=== PATIENT | male | born 1985 | race Caucasian/White ===

== ENCOUNTER 2016-04-02 21:10 | Emergency (ER) | payer OTHER ==
--- NOTE | 2016-04-02 22:59 | ED CLINICAL REPORT ---
Clinical Report - Physicians/Mid Levels [facility] [address] [place] [address] 04/02/2016 21:11 Patient: KELIN TORO Time Seen: 21:46; initial patient contact, initial documentation, patient care assumed. Arrived- By private vehicle. Historian- patient. HISTORY OF PRESENT ILLNESS Chief Complaint: VOMITING and DIARRHEA. This started yesterday and is now gone. No recent travel. He has had nausea and vomiting. The vomiting has occurred twice. He has had loose stools. This has occurred several times. No bloody, watery, mucous containing or blood-tinged diarrhea. No black stools, bloody stools, abdominal pain, constipation or flank pain. No known contact with a sick individual or change in routine. Has not recently been camping or on antibiotics. Possible bad food exposure at home (says his s/s started within a few hours of eating moldy apple pie). The illness is described as severe. (says after his vomiting started his whole body went numb, not so bad now, also c/o R sided facial swelling and a hole in his upper tooth). Similar symptoms previously: None. Recent medical care: Not recently seen/assessed. REVIEW OF SYSTEMS No fever, difficulty with urination, dark urine, chest pain or difficulty breathing. All systems otherwise negative, except as recorded above. PAST HISTORY See nurses notes. PROBLEMS: no known problems. ADDITIONAL SURGERIES: Appendectomy. Tonsillectomy. --21:21 Zenon Garcia, RDoraN. SOCIAL HISTORY Light tobacco smoker. Occasional alcohol use. No drug use. No recent travel. Is a local resident. FAMILY HISTORY Negative. ADDITIONAL NOTES The nursing notes have been reviewed with agreement regarding the chief complaint, HPI, ROS, PMH and patient medications and allergies. PHYSICAL EXAM Vital Signs: 04/02/2016 21:16 BP: 120/85. HR: 90. RR: 16. O2 saturation: 100%. Temp: 98.4 F. Pain level now: 0/10. Have been reviewed as normal and appear to be correct. Appearance: Alert. Oriented X3. No acute distress. Eyes: Pupils equal, round and reactive to light. Eyes normal inspection. ENT: Ears normal. Nose normal. Pharynx normal. (R upper 2nd molar broken off with mild gum swelling, mild R maxillary facial swelling). Neck: Normal inspection. Neck supple. CVS: Normal heart rate and rhythm. Heart sounds normal. Pulses normal. Respiratory: No respiratory distress. Breath sounds normal. Abdomen: Soft and nontender. Bowel sounds normal. No organomegaly. No mass. Back: Normal inspection. Skin: Skin warm and dry. Normal skin color. No rash. Normal skin turgor. Extremities: Extremities exhibit normal ROM. No lower extremity edema. Neuro: Oriented X 3. No motor deficit. No sensory deficit. LABS, X-RAYS, AND EKG Laboratory Tests: CBC w Diff: (VIJAYA: 04/02/2016 22:06) ( [facility] 04/02/2016 22:13) Final results Test Result Flag Units (Reference) WHITE BLOOD COUNT 6.0 K/uL (4.5-11.5) RED BLOOD COUNT 4.87 M/uL (4.50-5.90) HEMOGLOBIN 14.6 gm/dL (13.5-17.5) HEMATOCRIT 43.7 % (41.0-53.0) MEAN CELL VOLUME 90 fL (80-100) MEAN CORPUSCULAR HGB 30 pg (26-34) MEAN CORPUSCULAR HGB CONC 34 g/dL (31-37) RED CELL DISTRIBUTION WIDTH 13.7 % (11.6-14.8) PLATELET COUNT 225 K/uL (150-400) NEUTROPHIL % 50.5 % (50-75) LYMPH % 33.4 % (25-40) MONO % 13.4 % (3-14) EOSINOPHIL % 1.9 % (0-4) BASOPHIL % 0.8 % (0-2) CMP: (VIJAYA: 04/02/2016 22:06) ( [facility] [place] 04/02/2016 22:29) Final results Test Result Flag Units (Reference) GLUCOSE 123 H mg/dL (70-110) BUN 16 mg/dL (7-18) CREATININE 1.1 mg/dL (0.6-1.3) Estimated GFR >60 mL/min Estimated GFR- >60 mL/min Note: Persistent reduction over 3 months in eGFR<60 mL/min/1.73 m2 defines CKD. Patients with eGFR values>=60 mL/min/1.73 m2 may also have CKD if evidence ofpersistent proteinuria. Additional information may be foundat www.kidney.org. SODIUM 143 mmol/L (136-145) POTASSIUM 3.7 mmol/L (3.5-5.1) CHLORIDE 105 mmol/L (98-107) CARBON DIOXIDE 29 mmol/L (21-32) CALCIUM 9.0 mg/dL (8.5-10.1) TOTAL PROTEIN 7.3 g/dL (6.4-8.2) ALBUMIN 4.0 g/dL (3.3-5.0) BILIRUBIN, TOTAL 0.6 mg/dL (0.0-1.0) ALKALINE PHOSPHATASE 63 U/L (46-116) AST (SGOT) 12 L U/L (15-37) ALT (SGPT) 24 U/L (12-78) . PROGRESS AND PROCEDURES Course of Care: 2249. pt has not voided yet, agreed to dc. Patient counseled in person regarding the patient's stable condition, test results and diagnosis. 2249. Differential Diagnosis: I considered gastritis, peptic ulcer disease, ischemia, gastroesophageal reflux disease, gastroenteritis, cholecystitis, pancreatitis, viral syndrome, enterocolitis, hepatitis and sepsis as a possible cause of vomiting in this patient. This is a partial list of diagnoses considered. (dental pain, caries, abscess). Above considerations are based on history, physical exam and laboratory data. Differential diagnosis was discussed with patient. Disposition: Discharged home in good and improved condition (22:58). Condition: good and stable. CLINICAL IMPRESSION Acute food sensitivity gastroenteritis. Periapical dental abscess. No sinus tract or Oli's angina. INSTRUCTIONS Warnings: GENERAL WARNINGS: Return or contact your physician immediately if your condition worsens or changes unexpectedly, if not improving as expected, or if other problems arise. SPECIFICALLY, return if you develop pain in the abdomen or pelvis, fever, the inability to keep fluids down, blood in vomitus, blood in diarrhea, fainting or lightheadedness. Prescription Medications: Zofran 4 mg: Take 1 orally every six hours as needed for nausea/vomiting. Dispense ten (10). No refills. Substitution is permissible. Methuen 5 mg / 325 mg tablets: take 1 orally every 6 hours as needed for pain. Dispense ten (10). No refill. Penicillin V 500mg: take 1 tab orally every 6 hours for 10 days. Dispense forty (40). No refill Follow-up: Follow up with a dentist in about three days. Call for an appointment. Summary of care provided to patient. Understanding of the discharge instructions verbalized by patient. (Electronically signed by Nereyda De Leon A.R.N.P. 04/02/2016 23:42)
--- NOTE | 2016-04-02 22:59 | ED NURSING NOTES ---
Clinical Report - Nurses [place] [address] [place] [address] 04/02/2016 21:11 Patient: KELIN TORO TRIAGE Triage time 2118 PM. Chief Complaint: NUMBNESS, NAUSEA and VOMITING. Alert. No acute distress. ERIK COMA SCORE: Erik Coma Scale: 15- eyes open spontaneously (4); best verbal response- oriented x 4 (5); best motor response- obeys commands (6). --21:21 Zenon Garcia R.N. 21:16 04/02/16. BP: 120/85. HR: 90. RR: 16. O2 saturation: 100%. Temp: 98.4 F (oral). Pain level now: 0/10. --21:21 Zenon Garcia R.N. Weight: 61.2 kg stated. Height/Length: 65 inches Per Patient. BMI: 22.5. --21:20 Zenon Garcia R.N. Medications None. --21:20 Zenon Garcia R.N. Allergies No Known Drug Allergy. --21:20 Zenon Garcia R.N. History Arrived by private vehicle. Historian: patient. Accompanied by family. This started last night. ( Patient presents to the ED with symptoms of numbness and vomiting after consuming a partially moldy apple pie. Patient states that he is having some difficulty swallowing. Patient states that he came into the emergency department because he could not sleep.). 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 PAST MEDICAL HX: Negative. SOCIAL HX: Current every day light tobacco smoker (cigarette)- less than 1/2 a pack per day. Alcohol use. (no). History of drug use. (no). FALL RISK ASSESSMENT: Fall risk assessment completed. No fall risk identified. NUTRITIONAL RISK ASSESSMENT: The nutritional risk assessment revealed no deficiencies. FUNCTIONAL ASSESSMENT: Functional assessment: no impairments noted. LEARNING NEEDS ASSESSMENT: The learning needs assessment revealed no barriers. SKIN INTEGRITY ASSESSMENT: Skin integrity risk assessment completed. No skin integrity risk identified. --21:21 Jose, Zenon, R.N. PROBLEMS: no known problems. ADDITIONAL SURGERIES: Appendectomy. Tonsillectomy. --21:21 Zenon Garcia R.N. Interventions ID band on patient. --21:21 Zenon Garcia R.N. PHYSICAL ASSESSMENT Ambulatory to room. GENERAL / NEURO / PSYCH: Alert. Oriented X 4. Appears in no acute distress. He has had new onset of intermittent numbness of the right face and arm with tingling. HEENT: Pupils equal, round and reactive to light. No facial asymmetry noted. Mucous membranes are pink. RESPIRATORY: Respirations not labored. Chest nontender. Breath sounds within normal limits. CVS: Normal sinus rhythm noted. Capillary refill less than 2 seconds. Pulses within normal limits. GI / : The patient has had nausea. Emesis noted. EXTREMITIES: No motor deficit in the extremities. Sensation intact. Normal gait. SKIN: Skin intact. Skin is warm and dry. Normal skin turgor. --21:24 Zenon Garcia R.N. NURSING PROGRESS NOTES 22:04/02/2016 Site #1 started via IV with an 18g angiocath; one attempt. Blood drawn: rainbow set. Labeled in the presence of the patient and sent to the lab. Saline lock flushed with 10 mL saline. --22:11 Zenon Garcia R.N. 22:11 04/02/2016 Started IV Fluids IV NS (Saline); bolus of 1000 mL wide open via site #1. Allergies verified and confirmed 5 rights. IV patency established. IV site checked: no pain, redness, or swelling. IV flushed thoroughly pre- and post-medication administration. --22:11 Zenon Garcia R.N. ( Patient resting on the bed with even and unlabored respirations.). --22:31 Zenon Garcia R.N. 23:14 04/02/2016 IV Fluids IV NS Discontinued: bag #1 completed. Total amount infused: 1000 mL. IV patency established. IV site checked: no pain, redness, or swelling. IV flushed thoroughly. --23:14 Zenon Garcia R.N. DISPOSITION / DISCHARGE Condition at departure: improved. The goals identified in the patient's plan of care were met. No learning barriers present. Reviewed medication(s) side effects, precautions, dosing and course information. Patient verbalized understanding. Written instructions provided in Amharic. The patient was discharged home and accompanied by family and harmonica maker. He left the Emergency Department ambulatory and via private vehicle. Risk Investigator driving. FALL RISK ASSESSMENT: Fall risk assessment completed. No fall risk identified. --23:14 Zenon Garcia R.N. 23:12 04/02/16. BP: 101/63. HR: 80. RR: 16. O2 saturation: 97%. Temp: 98.2 F (oral). --23:14 Zenon Garcia R.N. Departure time: 2314 PM. --23:14 Zenon Garcia R.N. Locked/Released at 04/02/2016 23:15 by Zenon Garcia R.N.
--- NOTE | 2016-04-02 22:59 | ED ORDER SUMMARY ---
..... Patient: KELIN TORO OrderSheet [facility] VisitID: [id number] [place] [address] 31y, M Registration Date/Time: 04/02/2016 ORDER SHEET Weight: 61.2 kg (stated) Allergies: No Known Drug Allergy GENERAL ORDERS: CBC w Diff Urgent (:58 04/02/2016 HBivens A.R.N.P.) (22:10 HOShaughnessy R.N.) CMP Urgent (:04/02/2016 HBivens A.R.N.P.) (22:10 HOShaughnessy R.N.) UA-Culture if indicated Urgent (:04/02/2016 HBivens A.R.N.P.) (Ack 22:12 LTapper) (23:12 HOShaughnessy R.N.) Urine Drug Screen Urgent (:04/02/2016 HBivens A.R.N.P.) (Ack 22:12 LTapper) (23:12 HOShaughnessy R.N.) MEDICATION ORDERS: IV FLUIDS: IV NS : initial bolus 1000 mL (1000 mL/hr), then none - for X1 (NOW) (:58 04/02/2016 HBivens A.R.N.P.) (22:11 HOShaughnessy R.N.) IV Saline Lock (:04/02/2016 HBivens A.R.N.P.) (22:11 HOShaughnessy R.N.) ORDER SHEET NOTES: [Electronically signed by Zenon Garcia R.N. (23:15 04/02/2016)] [Electronically signed by Nereyda De Leon.R.N.P. (23:42 04/02/2016)] [Electronically locked/signed by Zenon Garcia R.N. (23:15 04/02/2016)]
--- NOTE | 2016-04-02 22:59 | ED ORDER SUMMARY ---
..... Patient: KELIN TORO OrderSheet [facility] VisitID: [id number] [place] [address] 31y, M Registration Date/Time: 04/02/2016 ORDER SHEET Weight: 61.2 kg (stated) Allergies: No Known Drug Allergy GENERAL ORDERS: CBC w Diff Urgent (:58 04/02/2016 HBivens A.R.N.P.) (22:10 HOShaughnessy R.N.) CMP Urgent (:04/02/2016 HBivens A.R.N.P.) (22:10 HOShaughnessy R.N.) UA-Culture if indicated Urgent (:04/02/2016 HBivens A.R.N.P.) (Ack 22:12 LTapper) (23:12 HOShaughnessy R.N.) Urine Drug Screen Urgent (:04/02/2016 HBivens A.R.N.P.) (Ack 22:12 LTapper) (23:12 HOShaughnessy R.N.) MEDICATION ORDERS: IV FLUIDS: IV NS : initial bolus 1000 mL (1000 mL/hr), then none - for X1 (NOW) (:58 04/02/2016 HBivens A.R.N.P.) (22:11 HOShaughnessy R.N.) IV Saline Lock (:04/02/2016 HBivens A.R.N.P.) (22:11 HOShaughnessy R.N.) ORDER SHEET NOTES: [Electronically signed by Zenon Garcia R.N. (23:15 04/02/2016)] [Electronically signed by Nereyda De Leon.R.N.P. (23:42 04/02/2016)] [Electronically locked/signed by Zenon Garcia R.N. (23:15 04/02/2016)]
--- NOTE | 2016-04-02 22:59 | ED NURSING NOTES ---
Clinical Report - Nurses [place] [address] [place] [address] 04/02/2016 21:11 Patient: KELIN TORO TRIAGE Triage time 2118 PM. Chief Complaint: NUMBNESS, NAUSEA and VOMITING. Alert. No acute distress. ERIK COMA SCORE: Erik Coma Scale: 15- eyes open spontaneously (4); best verbal response- oriented x 4 (5); best motor response- obeys commands (6). --21:21 Zenon Garcia R.N. 21:16 04/02/16. BP: 120/85. HR: 90. RR: 16. O2 saturation: 100%. Temp: 98.4 F (oral). Pain level now: 0/10. --21:21 Zenon Garcia R.N. Weight: 61.2 kg stated. Height/Length: 65 inches Per Patient. BMI: 22.5. --21:20 Zenon Garcia R.N. Medications None. --21:20 Zenon Garcia R.N. Allergies No Known Drug Allergy. --21:20 Zenon Garcia R.N. History Arrived by private vehicle. Historian: patient. Accompanied by family. This started last night. ( Patient presents to the ED with symptoms of numbness and vomiting after consuming a partially moldy apple pie. Patient states that he is having some difficulty swallowing. Patient states that he came into the emergency department because he could not sleep.). Treatment HOUSE ADMIN: None. PAST MEDICAL HX: Negative. SOCIAL HX: Current every day light tobacco smoker (cigarette)- less than 1/2 a pack per day. Alcohol use. (no). History of drug use. (no). FALL RISK ASSESSMENT: Fall risk assessment completed. No fall risk identified. NUTRITIONAL RISK ASSESSMENT: The nutritional risk assessment revealed no deficiencies. FUNCTIONAL ASSESSMENT: Functional assessment: no impairments noted. LEARNING NEEDS ASSESSMENT: The learning needs assessment revealed no barriers. SKIN INTEGRITY ASSESSMENT: Skin integrity risk assessment completed. No skin integrity risk identified. --21:21 Jose, Zenon, R.N. PROBLEMS: no known problems. ADDITIONAL SURGERIES: Appendectomy. Tonsillectomy. --21:21 Zenon Garcia R.N. Interventions ID band on patient. --21:21 Zenon Garcia R.N. PHYSICAL ASSESSMENT Ambulatory to room. GENERAL / NEURO / PSYCH: Alert. Oriented X 4. Appears in no acute distress. He has had new onset of intermittent numbness of the right face and arm with tingling. HEENT: Pupils equal, round and reactive to light. No facial asymmetry noted. Mucous membranes are pink. RESPIRATORY: Respirations not labored. Chest nontender. Breath sounds within normal limits. CVS: Normal sinus rhythm noted. Capillary refill less than 2 seconds. Pulses within normal limits. GI / : The patient has had nausea. Emesis noted. EXTREMITIES: No motor deficit in the extremities. Sensation intact. Normal gait. SKIN: Skin intact. Skin is warm and dry. Normal skin turgor. --21:24 Zenon Garcia R.N. NURSING PROGRESS NOTES 22:04/02/2016 Site #1 started via IV with an 18g angiocath; one attempt. Blood drawn: rainbow set. Labeled in the presence of the patient and sent to the lab. Saline lock flushed with 10 mL saline. --22:11 Zenon Garcia R.N. 22:11 04/02/2016 Started IV Fluids IV NS (Saline); bolus of 1000 mL wide open via site #1. Allergies verified and confirmed 5 rights. IV patency established. IV site checked: no pain, redness, or swelling. IV flushed thoroughly pre- and post-medication administration. --22:11 Zenon Garcia R.N. ( Patient resting on the bed with even and unlabored respirations.). --22:31 Zenon Garcia R.N. 23:14 04/02/2016 IV Fluids IV NS Discontinued: bag #1 completed. Total amount infused: 1000 mL. IV patency established. IV site checked: no pain, redness, or swelling. IV flushed thoroughly. --23:14 Zenon Garcia R.N. DISPOSITION / DISCHARGE Condition at departure: improved. The goals identified in the patient's plan of care were met. No learning barriers present. Reviewed medication(s) side effects, precautions, dosing and course information. Patient verbalized understanding. Written instructions provided in [place]. The patient was discharged home and accompanied by family and television maintenance man. He left the Emergency Department ambulatory and via private vehicle. Zinc Plate Grainer driving. FALL RISK ASSESSMENT: Fall risk assessment completed. No fall risk identified. --23:14 Zenon Garcia R.N. 23:12 04/02/16. BP: 101/63. HR: 80. RR: 16. O2 saturation: 97%. Temp: 98.2 F (oral). --23:14 Zenon Garcia R.N. Departure time: 2314 PM. --23:14 Zenon Garcia R.N. Locked/Released at 04/02/2016 23:15 by Zenon Garcia R.N.
--- NOTE | 2016-04-02 23:42 | ED MAR SUMMARY ---
..... Medication Administration Record [facility] [address] [place] [address] Patient: KELIN TORO Visit ID: [id number] 31y, M Weight: 61.2 kg Height/Length: 65 in BMI: 22.5 ALLERGIES: No Known Drug Allergy Start 22:11 04/02/2016 Zenon Garcia R.N., Stop 23:14 04/02/2016 Zenon Garcia R.N. Medication Administered: IV NS (SALINE), Dose: IV Fluids, Bolus: 1000 mL wide open, Site: #1. Medication Ordered: IV NS : initial bolus 1000 mL (1000 mL/hr), then none - for X1 (NOW).
--- NOTE | 2016-04-02 23:42 | ED MAR SUMMARY ---
..... Medication Administration Record [facility] [address] [place] [address] Patient: KELIN TORO Visit ID: [id number] 31y, M Weight: 61.2 kg Height/Length: 65 in BMI: 22.5 ALLERGIES: No Known Drug Allergy Start 22:11 04/02/2016 Zenon Garcia R.N., Stop 23:14 04/02/2016 Zenon Garcia R.N. Medication Administered: IV NS (SALINE), Dose: IV Fluids, Bolus: 1000 mL wide open, Site: #1. Medication Ordered: IV NS : initial bolus 1000 mL (1000 mL/hr), then none - for X1 (NOW).
--- NOTE | 2016-04-02 23:42 | ED MED RECONCILIATION SUMMARY ---
Patient: KELIN TORO Medication Reconciliation Report [facility] VisitID: [id number] [address] [place] [address] 31y, M Registration Date/Time: 04/02/2016 Weight: 61.2 kg Height/Length: 65 in. BMI: 22.5 ALLERGIES: No Known Drug Allergy The patient's Home Medications are listed below: NONE. The source(s) of the original Home Medication information: Not obtained. The following Medications were given to the patient in the Emergency Department: IV NS IV Fluids bolus 1000 mL wide open, administered: 04/02/2016 10:11:00 PM The following Medications were prescribed to the patient: Zofran 4 mg: Take 1 orally every six hours as needed for nausea/vomiting. Dispense ten (10). No refills. Substitution is permissible. -- Nereyda De Leon, A.R.N.P. Bigler 5 mg / 325 mg tablets: take 1 orally every 6 hours as needed for pain. Dispense ten (10). No refill. -- Nereyda De Leon, A.R.N.P. Penicillin V 500mg: take 1 tab orally every 6 hours for 10 days. Dispense forty (40). No refill -- Nereyda De Leon, A.R.N.P.
--- NOTE | 2016-04-02 23:42 | ED DISCHARGE INSTRUCTIONS ---
Patient: KELIN TORO General Instructions [facility] VisitID: [id number] [place] [address] 31y, M Registration Date/Time: 04/02/2016 Acute food sensitivity gastroenteritis. Periapical dental abscess. No sinus tract or Oli's angina. INSTRUCTIONS Warnings: GENERAL WARNINGS: Return or contact your physician immediately if your condition worsens or changes unexpectedly, if not improving as expected, or if other problems arise. SPECIFICALLY, return if you develop pain in the abdomen or pelvis, fever, the inability to keep fluids down, blood in vomitus, blood in diarrhea, fainting or lightheadedness. Prescription Medications: Zofran 4 mg: Take 1 orally every six hours as needed for nausea/vomiting. Dispense ten (10). No refills. Substitution is permissible. [place] 5 mg / 325 mg tablets: take 1 orally every 6 hours as needed for pain. Dispense ten (10). No refill. Penicillin V 500mg: take 1 tab orally every 6 hours for 10 days. Dispense forty (40). No refill Follow-up: Follow up with a dentist in about three days. Call for an appointment. Summary of care provided to patient. Understanding of the discharge instructions verbalized by patient. ADDITIONAL INFORMATION Food Poisoning Or Viral Gastroenteritis (6Yr-Adult) You have a stomach illness that is likely either food poisoning or viral gastroenteritis. Food poisoning occurs from1 to 24 hours after eating contaminated food and lasts up to 1 to 2 days. Viral gastroenteritis is commonly known as the stomach flu. It may last up to a week. Symptoms of both illnesses may include vomiting, diarrhea, fever, and stomach cramping. Antibiotics are not an effective treatment for either problem, but simple home treatment can give relief. Home Care: If symptoms are severe, rest at home for the next 24 hours. You may use acetaminophen (Tylenol) or ibuprofen (Motrin, Advil) to control fever, unless another medication was prescribed. [NOTE: If you have chronic liver or kidney disease or ever had a stomach ulcer or GI bleeding, talk with your doctor before using these medications. Do not give aspirin to anyone under 18 years of age who is ill with a fever.] Avoid tobacco and alcohol consumption. These may worsen your symptoms. If medicines for diarrhea or vomiting were prescribed, take these only as directed. Never take these without a healthcare providers approval. During the first12 to 24hours follow the diet below: BEVERAGES: Sport drinks like Gatorade, soft drinks without caffeine; julio césar jostin, mineral water (plain or flavored), decaffeinated tea and coffee. SOUPS: Clear broth, consomm and bouillon DESSERTS: Plain gelatin (Jell-O), popsicles and fruit juice bars. During the next 24 hours you may add the following to the above: Hot cereal, plain toast, bread, rolls, crackers Plain noodles, rice, mashed potatoes, chicken noodle or rice soup Unsweetened canned fruit (avoid pineapple), bananas Limit fat intake to less than 15 grams per day by avoiding margarine, butter, oils, mayonnaise, sauces, gravies, fried foods, peanut butter, meat, poultry, and fish. Limit fiber; avoid raw or cooked vegetables, fresh fruits (except bananas) and bran cereals. Limit caffeine and chocolate. No spices or seasonings except salt. Gradually resume a normal diet as you feel better and your symptoms lessen. Follow Up with your doctor as advised if you are not better in 2 days. If a stool (diarrhea) sample was taken, you may call in 2 days (or as directed) for the results. Get Prompt Medical Attention if any of the following occur: Increasing abdominal pain or constant lower right abdominal pain Continued vomiting (unable to keep liquids down) Frequent diarrhea (more than 5 times a day) Blood in vomit or stool (black or red color) Signs of dehydration: increased thirst, dark urine, reduced or no urine output, dry mouth and tongue, tireness or weakness, dizziness when standing, rapid breathinng New rash Fever of 100.4F (38C) oral or higher, not better with fever medication Gastroenteritis [Non-Infectious, 6 Yr-Adult] Your symptoms today are coming from the intestinal tract. This may occur as a result of food sensitivity, inflammation of the GI tract, medicines, stress or other causes not related to infection. This may last from 1-3 days. Antibiotics are not effective, but simple home treatment will be helpful. Home Care: If symptoms are severe, rest at home for the next 24 hours. You may use acetaminophen (Tylenol) or ibuprofen (Motrin, Advil) to control fever, unless another medicine was prescribed. [NOTE: If you have chronic liver or kidney disease or ever had a stomach ulcer or GI bleeding, talk with your doctor before using these medicines.] (Aspirin should never be used in anyone under 18 years of age who is ill with a fever. It may cause severe liver damage.) Avoid tobacco and alcohol use, which may make your symptoms worse. If medicines for diarrhea or vomiting were prescribed, take only as directed. Once vomiting stops, then follow these guidelines: During The First 12-24 Hours follow the diet below: gingerale, mineral water (plain or flavored), decaffeinated tea and coffee. During The Next 24 Hours you may add the following to the above: DURING THE NEXT 24 HOURS Gradually resume a normal diet, as you feel better and your symptoms lessen. Follow Up with your doctor as advised if you are not improving over the next 2-3 days. If a stool (diarrhea) sample was taken, you may call in 2 days (or as directed) for the results. Get Prompt Medical Attention if any of the following occur: Increasing abdominal pain or constant lower right abdominal pain Continued vomiting (unable to keep liquids down) Frequent diarrhea (more than 5 times a day) Blood in vomit or stool (black or red color) Reduced oral intake Dark urine, reduced urine output Weakness, dizziness, fainting Drowsiness, confusion, stiff neck or seizure Fever of 100.4F (38C) or higher, or as directed by your healthcare provider New rash Dental Abscess A dental abscess is an infection of the tooth socket. It often starts with a crack or cavity in the tooth. A pocket of pus forms between the tooth and the bone. The infection causes pain and swelling of the gum, cheek or jaw. The pain is often made worse by drinking hot or cold fluids, or biting on hard foods. Pain may be felt in the facial sinus or in the ear. A severe infection can interfere with swallowing and breathing. In the emergency department or clinic, you will be started on an antibiotic. However, final treatment requires drainage of the pus. This can be done by removing the tooth or performing a root canal. A root canal is done by an oral surgeon and involves drilling an opening in the tooth to drain the pus. After the infection has healed, a crown is placed over the tooth. Home care The following guidelines will help you care for your abscess at home: Avoid hot and cold foods and liquids since your tooth may be sensitive to temperature changes. If your tooth is chipped or cracked, or if there is a large open cavity, applyoil of cloves(available riyw-fms-dysajrv in drug stores) directly to the tooth to reduce pain. Some pharmacies carry an qaoo-gym-gaagtvr "toothache kit". This contains oil of cloves and a paste, which can be applied over the exposed tooth to decrease sensitivity. Apply an ice pack (ice cubes in a plastic bag, wrapped in a towel) over the injured area for 20 minutes every 12 hours the first day for pain relief. Continue this 34 times a day until the pain and swelling goes away. You may use acetaminophen or ibuprofen to control pain, unless another medicine was prescribed. If you have chronic liver or kidney disease or ever had a stomach ulcer or GI bleeding, talk with your doctor before using these medicines. An antibiotic will be prescribed. Take it as directed until completed, even if you are feeling better sooner. Follow-up care Follow up as directed with a dentist or oral surgeon. Even though your pain may improve with the treatment given today, only a dentist or oral surgeon can provide full treatment for this problem. When to seek medical care Get prompt medical attention or contact your doctor if any of the following occur: Your face or eyelid becomes swollen or red Pain worsens or spreads to the neck Fever over 100.4F (38.0C) Unusual drowsiness; headache or stiff neck; weakness, or fainting Pus drains from the gum or tooth Difficulty talking, swallowing or breathing Unable to open your mouth wide Dental Pain A crack or cavity in the tooth, which exposes the sensitive inner area of the tooth can cause tooth pain. An infection in the gum or the root of the tooth can cause pain and swelling. The pain is often made worse by drinking hot or cold fluids, or biting on hard foods. Pain may spread from the tooth to the ear or jaw on the same side. Home Care: Avoid hot and cold foods and liquids since your tooth may be sensitive to temperature changes. If your tooth is chipped or cracked, or if there is a large open cavity, apply OIL OF CLOVES (available wnnq-omq-rcxsegk in drug stores) directly to the tooth to reduce pain. Some pharmacies carry an udyt-vna-kxlcdvq "toothache kit." This contains a paste, which can be applied over the exposed tooth to decrease sensitivity. A cold pack on your jaw over the sore area may help reduce pain. You may use acetaminophen (Tylenol) or ibuprofen (Motrin, Advil) to control pain, unless another medicine was prescribed. [ NOTE: If you have chronic liver or kidney disease or ever had a stomach ulcer or GI bleeding, talk with your doctor before using these medicines.] If you have signs of an infection, an antibiotic will be given. Take it as directed. Follow-Up as directed with a dentist. Your pain may go away with the treatment given. However, only a dentist can fully evaluate and treat the cause and prevent the pain from coming back again. TOOTHACHE IS A SIGN OF DISEASE IN YOUR TOOTH AND SHOULD BE EXAMINED AND TREATED BY A DENTIST. Get Prompt Medical Attention if any of the following occur: Your face becomes swollen or red Pain worsens or spreads to the neck Fever over 100.4 F (38.0 C) Unusual drowsiness; headache or stiff neck; weakness or fainting Pus drains from the tooth Difficulty swallowing or breathing Ondansetron Oral disintegrating tablet What is this medicine? ONDANSETRON (on HUSEYIN se kannan) is used to treat nausea and vomiting caused by chemotherapy. It is also used to prevent or treat nausea and vomiting after surgery. How should I use this medicine? These tablets are made to dissolve in the mouth. Do not try to push the tablet through the foil backing. With dry hands, peel away the foil backing and gently remove the tablet. Place the tablet in the mouth and allow it to dissolve, then swallow. While you may take these tablets with water, it is not necessary to do so. Talk to your printing technician regarding the use of this medicine in children. Special care may be needed. What side effects may I notice from receiving this medicine? Side effects that you should report to your doctor or health date night caregiver as soon as possible: allergic reactions like skin rash, itching or hives, swelling of the face, lips, or tongue breathing problems dizziness fast or irregular heartbeat feeling faint or lightheaded, falls fever and chills swelling of the hands and feet tightness in the chest Side effects that usually do not require medical attention (report to your doctor or health date night caregiver if they continue or are bothersome): constipation or diarrhea headache What may interact with this medicine? Do not take this medicine with any of the following medications: -apomorphine -cisapride -dofetilide -dronedarone -pimozide -thioridazine -ziprasidone This medicine may also interact with the following medications: -carbamazepine -phenytoin -rifampicin -tramadol -other medicines that prolong the QT interval (cause an abnormal heart rhythm) What if I miss a dose? If you miss a dose, take it as soon as you can. If it is almost time for your next dose, take only that dose. Do not take double or extra doses. Where should I keep my medicine? Keep out of the reach of children. Store between 2 and 30 degrees C (36 and 86 degrees F). Throw away any unused medicine after the expiration date. What should I tell my health care provider before I take this medicine? They need to know if you have any of these conditions: heart disease history of irregular heartbeat liver disease low levels of magnesium or potassium in the blood an unusual or allergic reaction to ondansetron, granisetron, other medicines, foods, dyes, or preservatives or trying to get breast-feeding What should I watch for while using this medicine? Check with your doctor or health date night caregiver as soon as you can if you have any sign of an allergic reaction. Hydrocodone Bitartrate, Acetaminophen Oral tablet What is this medicine? ACETAMINOPHEN; HYDROCODONE (a set a JONG duc fen; dameon droe KOE done) is a pain reliever. It is used to treat mild to moderate pain. How should I use this medicine? Take this medicine by mouth. Swallow it with a full glass of water. Follow the directions on the prescription label. If the medicine upsets your stomach, take the medicine with food or milk. Do not take more than you are told to take. Talk to your printing technician regarding the use of this medicine in children. This medicine is not approved for use in children. What side effects may I notice from receiving this medicine? Side effects that you should report to your doctor or health date night caregiver as soon as possible: allergic reactions like skin rash, itching or hives, swelling of the face, lips, or tongue breathing problems confusion feeling faint or lightheaded, falls stomach pain yellowing of the eyes or skin Side effects that usually do not require medical attention (report to your doctor or health date night caregiver if they continue or are bothersome): nausea, vomiting stomach upset What may interact with this medicine? alcohol antihistamines isoniazid medicines for depression, anxiety, or psychotic disturbances medicines for sleep muscle relaxants naltrexone narcotic medicines (opiates) for pain phenobarbital ritonavir tramadol What if I miss a dose? If you miss a dose, take it as soon as you can. If it is almost time for your next dose, take only that dose. Do not take double or extra doses. Where should I keep my medicine? Keep out of the reach of children. This medicine can be abused. Keep your medicine in a safe place to protect it from theft. Do not share this medicine with anyone. Selling or giving away this medicine is dangerous and against the law. Store at room temperature between 15 and 30 degrees C (59 and 86 degrees F). Protect from light. Keep container tightly closed. Throw away any unused medicine after the expiration date. Discard unused medicine and used packaging carefully. Pets and children can be harmed if they find used or lost packages. What should I tell my health care provider before I take this medicine? They need to know if you have any of these conditions: brain tumor Crohn's disease, inflammatory bowel disease, or ulcerative colitis drink more than 3 alcohol-containing drinks per day drug abuse or addiction head injury heart or circulation problems kidney disease or problems going to the bathroom liver disease lung disease, asthma, or breathing problems an unusual or allergic reaction to acetaminophen, hydrocodone, other opioid analgesics, other medicines, foods, dyes, or preservatives or trying to get breast-feeding What should I watch for while using this medicine? Tell your doctor or health date night caregiver if your pain does not go away, if it gets worse, or if you have new or a different type of pain. You may develop tolerance to the medicine. Tolerance means that you will need a higher dose of the medicine for pain relief. Tolerance is normal and is expected if you take the medicine for a long time. Do not suddenly stop taking your medicine because you may develop a severe reaction. Your body becomes used to the medicine. This does NOT mean you are addicted. Addiction is a behavior related to getting and using a drug for a non-medical reason. If you have pain, you have a medical reason to take pain medicine. Your doctor will tell you how much medicine to take. If your doctor wants you to stop the medicine, the dose will be slowly lowered over time to avoid any side effects. You may get drowsy or dizzy when you first start taking the medicine or change doses. Do not drive, use machinery, or do anything that may be dangerous until you know how the medicine affects you. Stand or sit up slowly. There are different types of narcotic medicines (opiates) for pain. If you take more than one type at the same time, you may have more side effects. Give your health care provider a list of all medicines you use. Your doctor will tell you how much medicine to take. Do not take more medicine than directed. Call emergency for help if you have problems breathing. The medicine will cause constipation. Try to have a bowel movement at least every 2 to 3 days. If you do not have a bowel movement for 3 days, call your doctor or health date night caregiver. Too much acetaminophen can be very dangerous. Do not take Tylenol (acetaminophen) or medicines that contain acetaminophen with this medicine. Many non-prescription medicines contain acetaminophen. Always read the labels carefully. Penicillin V Potassium Oral tablet What is this medicine? PENICILLIN V (pen i SILL in V) is a penicillin antibiotic. It is used to treat certain kinds of bacterial infections. It will not work for colds, flu, or other viral infections. How should I use this medicine? Take this medicine by mouth with a full glass of water. Follow the directions on the prescription label. Take your medicine at regular intervals. Do not take your medicine more often than directed. Take all of your medicine as directed even if you think your are better. Do not skip doses or stop your medicine early. Talk to your printing technician regarding the use of this medicine in children. While this drug may be prescribed for selected conditions, precautions do apply. What side effects may I notice from receiving this medicine? Side effects that you should report to your doctor or health date night caregiver as soon as possible: allergic reactions like skin rash or hives, swelling of the face, lips, or tongue breathing problems fever new symptoms of infection redness, blistering, peeling or loosening of the skin, including inside the mouth unusually weak or tired Side effects that usually do not require medical attention (report to your doctor or health date night caregiver if they continue or are bothersome): diarrhea headache nausea, vomiting sore mouth or tongue stomach upset What may interact with this medicine? control pills methotrexate other antibiotics probenecid some vaccines What if I miss a dose? If you miss a dose, take it as soon as you can. If it is almost time for your next dose, take only that dose. Do not take double or extra doses. Where should I keep my medicine? Keep out of the reach of children. Store at room temperature between 15 and 30 degrees C (59 and 86 degrees F). Keep container tightly closed. Throw away any unused medicine after the expiration date. What should I tell my health care provider before I take this medicine? They need to know if you have any of these conditions: asthma bowel disease, like colitis eczema kidney disease an unusual or allergic reaction to penicillin, cephalosporins, other antibiotics or medicines, foods, tartrazine or other dyes, or preservatives or trying to get breast-feeding What should I watch for while using this medicine? Tell your doctor or health date night caregiver if your symptoms do not improve. Do not treat diarrhea with over the counter products. Contact your doctor if you have diarrhea that lasts more than 2 days or if it is severe and watery. If you have diabetes, you may get a false-positive result for sugar in your urine. Check with your doctor or health date night caregiver. control pills may not work properly while you are taking this medicine. Talk to your doctor about using an extra method of control. You have been given the following additional information: Food Poisoning Or Gastroenteritis (6Y-Adult) Gastroenteritis, Non-Infectious (Child) (Adult) Tooth Abscess Dental Pain Ondansetron Oral disintegrating tablet Hydrocodone Bitartrate, Acetaminophen Oral tablet Penicillin V Potassium Oral tablet (Electronically signed by Nereyda De Leon A.R.N.P. 04/02/2016 23:42)
--- NOTE | 2016-04-02 23:42 | ED MED RECONCILIATION SUMMARY ---
Patient: KELIN TORO Medication Reconciliation Report [facility] VisitID: [id number] [place] [address] 31y, M Registration Date/Time: 04/02/2016 Weight: 61.2 kg Height/Length: 65 in. BMI: 22.5 ALLERGIES: No Known Drug Allergy The patient's Home Medications are listed below: NONE. The source(s) of the original Home Medication information: Not obtained. The following Medications were given to the patient in the Emergency Department: IV NS IV Fluids bolus 1000 mL wide open, administered: 04/02/2016 10:11:00 PM The following Medications were prescribed to the patient: Zofran 4 mg: Take 1 orally every six hours as needed for nausea/vomiting. Dispense ten (10). No refills. Substitution is permissible. -- Nereyda De Leon, A.R.N.P. [place] 5 mg / 325 mg tablets: take 1 orally every 6 hours as needed for pain. Dispense ten (10). No refill. -- Nereyda De Leon, A.R.N.P. Penicillin V 500mg: take 1 tab orally every 6 hours for 10 days. Dispense forty (40). No refill -- Nereyda De Leon, A.R.N.P.
== END 2016-04-02 23:26 | disposition home or self-care (01) ==
LOC: ED SRH 21:10
DX: K52.29 Other allergic and dietetic gastroenteritis and colitis (principal); K04.7 Periapical abscess without sinus; F17.210 Nicotine dependence, cigarettes, uncomplicated
CPT/HCPCS: 90100; 95059

== ENCOUNTER 2016-04-04 10:06 | Emergency (ER) | payer OTHER ==
--- NOTE | 2016-04-04 13:36 | ED NURSING NOTES ---
Clinical Report - Nurses [facility] [address] [place] [address] 04/04/2016 10:09 Patient: KELIN TORO TRIAGE Triage time 10:52. Acuity: LEVEL 3. Chief Complaint: SORE THROAT and CHILLS and FEVER (Seen here on Sunday, for broken tooth. Given antibiotics and pain med. Today woke up with a sore throat.). Alert. No acute distress. SEPSIS SCREEN: Sepsis Screen: negative. Negative (no infection suspected/documented). --10:57 Lavonne James R.N. 10:52 04/04/16. BP: 122/68. HR: 96. RR: 22. O2 saturation: 98%. Temp: 99.4 F. Pain level now: 07/12. --10:57 Lavonne James R.N. 10:52 04/04/16. BP: 122/68. HR: 96. RR: 22. O2 saturation: 98%. Temp: 99.4 F. Pain level now: 07/12. --10:57 Lavonne James R.N. Weight: 61.2 kg stated. Height/Length: 65 inches Per Patient. BMI: 22.5. --10:57 Lavonne James R.N. Medications Pcn 500mg 4 times a day . --10:54 Lavonne James R.N. [place] Oral (Tablet 5-325 mg) 1 tablet, hs as needed. --10:54 Lavonne James R.N. Allergies None. --10:55 Lavonne James R.N. Medication/allergy information source: the patient. --10:57 Lavonne James R.N. History Arrived by private vehicle. Historian: patient. Accompanied by family. No primary care physician. This started today. He has had fever. ( coughing at night). No hoarseness, ear pain or sinus pain. 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 PAST MEDICAL HX: Immunizations: status is unknown. SOCIAL HX: Light tobacco smoker (cigarette)- less than 1/2 a pack per day. No alcohol use or drug use. FALL RISK ASSESSMENT: Fall risk assessment completed. No fall risk identified. NUTRITIONAL RISK ASSESSMENT: The nutritional risk assessment revealed no deficiencies. FUNCTIONAL ASSESSMENT: Functional assessment: no impairments noted. LEARNING NEEDS ASSESSMENT: The learning needs assessment revealed no barriers. SKIN INTEGRITY ASSESSMENT: Skin integrity risk assessment completed. No skin integrity risk identified. --10:57 Lavonne James R.N. PROBLEMS: Tooth broken . Dental Abscess. Gastroenteritis. --10:56 Lavonne James R.N. ADDITIONAL SURGERIES: Appendectomy. Tonsillectomy. --10:56 Lavonne James R.N. Interventions ID band on patient. To room. --10:57 Lavonne James R.N. PHYSICAL ASSESSMENT Ambulatory to room. Patient gowned. GENERAL / NEURO / PSYCH: Alert. Oriented X 4. Appears in pain and anxious. HEENT: Voice within normal limits. Mucous membranes are pink. RESPIRATORY: Respirations not labored. CVS: Capillary refill less than 2 seconds. SKIN: Skin is warm and dry. Normal skin turgor. --10:58 Lavonne James R.N. NURSING PROGRESS NOTES Patient gowned. Head of bed elevated. Two patient identifiers checked. Call light placed in reach. Side rails up x 2. Bed placed in lowest position. Brakes of bed on. Patient ready for evaluation. --10:58 Lavonne James R.N. Patient ID band checked for patient name: patient confirmed. Flu swab obtained by RN via nasal pharyngeal swab. Labeled in the presence of the patient and sent to lab. --12:30 Lavonne James R.N. 12:30 04/04/16. BP: 114/73. HR: 100. RR: 20. O2 saturation: 96% on room air. Temp: 101.1 F. Pain level now: 07/12. --12:31 Lavonne James R.N. 12:45 04/04/16. Critical value relayed to ED by Gage (Lab). Critical value received by Niko Moreno RN. Influenza A. ED physician notifed of critical value. --12:45 Niko Moreno R.N. 13:09 04/04/2016 Tamiflu PO 75 mg given. Allergies verified and confirmed 5 rights. --13:09 Lavonne James R.N. 13:10 04/04/2016 Tylenol (Acetaminophen) PO 1000 mg given. Allergies verified and confirmed 5 rights. --13:10 Lavonne James R.N. DISPOSITION / DISCHARGE Condition at departure: improved. No learning barriers present. Reviewed medication(s) side effects, precautions, dosing and course information. Prescription(s) given to the patient. Written instructions provided in [place]an. The patient was discharged home. He left the Emergency Department ambulatory and via private vehicle. Patient driving. Medication list reviewed and validated. --15:05 Lavonne James R.N. 14:03 04/04/16. BP: 113/65. HR: 90. RR: 20. O2 saturation: 96% on room air. Temp: deferred. 12:30 04/04/16. BP: 114/73. HR: 100. RR: 20. O2 saturation: 96% on room air. Temp: 101.1 F. Pain level now: 07/12. 10:52 04/04/16. BP: 122/68. HR: 96. RR: 22. O2 saturation: 98%. Temp: 99.4 F. Pain level now: 07/12. --15:05 Lavonne James R.N. Locked/Released at 04/04/2016 15:05 by Lavonne James R.N.
--- NOTE | 2016-04-04 13:36 | ED NURSING NOTES ---
Clinical Report - Nurses [facility] [address] [place] [address] 04/04/2016 10:09 Patient: KELIN TORO TRIAGE Triage time 10:52. Acuity: LEVEL 3. Chief Complaint: SORE THROAT and CHILLS and FEVER (Seen here on Sunday, for broken tooth. Given antibiotics and pain med. Today woke up with a sore throat.). Alert. No acute distress. SEPSIS SCREEN: Sepsis Screen: negative. Negative (no infection suspected/documented). --10:57 Lavonne James R.N. 10:52 04/04/16. BP: 122/68. HR: 96. RR: 22. O2 saturation: 98%. Temp: 99.4 F. Pain level now: 07/12. --10:57 Lavonne James R.N. 10:52 04/04/16. BP: 122/68. HR: 96. RR: 22. O2 saturation: 98%. Temp: 99.4 F. Pain level now: 07/12. --10:57 Lavonne James R.N. Weight: 61.2 kg stated. Height/Length: 65 inches Per Patient. BMI: 22.5. --10:57 Lavonne James R.N. Medications Pcn 500mg 4 times a day . --10:54 Lavonne James R.N. [place] Oral (Tablet 5-325 mg) 1 tablet, hs as needed. --10:54 Lavonne James R.N. Allergies None. --10:55 Lavonne James R.N. Medication/allergy information source: the patient. --10:57 Lavonne James R.N. History Arrived by private vehicle. Historian: patient. Accompanied by family. No primary care physician. This started today. He has had fever. ( coughing at night). No hoarseness, ear pain or sinus pain. 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 PAST MEDICAL HX: Immunizations: status is unknown. SOCIAL HX: Light tobacco smoker (cigarette)- less than 1/2 a pack per day. No alcohol use or drug use. FALL RISK ASSESSMENT: Fall risk assessment completed. No fall risk identified. NUTRITIONAL RISK ASSESSMENT: The nutritional risk assessment revealed no deficiencies. FUNCTIONAL ASSESSMENT: Functional assessment: no impairments noted. LEARNING NEEDS ASSESSMENT: The learning needs assessment revealed no barriers. SKIN INTEGRITY ASSESSMENT: Skin integrity risk assessment completed. No skin integrity risk identified. --10:57 Lavonne James R.N. PROBLEMS: Tooth broken . Dental Abscess. Gastroenteritis. --10:56 Lavonne James R.N. ADDITIONAL SURGERIES: Appendectomy. Tonsillectomy. --10:56 Lavonne James R.N. Interventions ID band on patient. To room. --10:57 Lavonne James R.N. PHYSICAL ASSESSMENT Ambulatory to room. Patient gowned. GENERAL / NEURO / PSYCH: Alert. Oriented X 4. Appears in pain and anxious. HEENT: Voice within normal limits. Mucous membranes are pink. RESPIRATORY: Respirations not labored. CVS: Capillary refill less than 2 seconds. SKIN: Skin is warm and dry. Normal skin turgor. --10:58 Lavonne James R.N. NURSING PROGRESS NOTES Patient gowned. Head of bed elevated. Two patient identifiers checked. Call light placed in reach. Side rails up x 2. Bed placed in lowest position. Brakes of bed on. Patient ready for evaluation. --10:58 Lavonne James R.N. Patient ID band checked for patient name: patient confirmed. Flu swab obtained by RN via nasal pharyngeal swab. Labeled in the presence of the patient and sent to lab. --12:30 Lavonne James R.N. 12:30 04/04/16. BP: 114/73. HR: 100. RR: 20. O2 saturation: 96% on room air. Temp: 101.1 F. Pain level now: 07/12. --12:31 Lavonne James R.N. 12:45 04/04/16. Critical value relayed to ED by Gage (Lab). Critical value received by Niko Moreno RN. Influenza A. ED physician notifed of critical value. --12:45 Niko Moreno R.N. 13:09 04/04/2016 Tamiflu PO 75 mg given. Allergies verified and confirmed 5 rights. --13:09 Lavonne James R.N. 13:10 04/04/2016 Tylenol (Acetaminophen) PO 1000 mg given. Allergies verified and confirmed 5 rights. --13:10 Lavonne James R.N. DISPOSITION / DISCHARGE Condition at departure: improved. No learning barriers present. Reviewed medication(s) side effects, precautions, dosing and course information. Prescription(s) given to the patient. Written instructions provided in [place]ian. The patient was discharged home. He left the Emergency Department ambulatory and via private vehicle. Patient driving. Medication list reviewed and validated. --15:05 Lavonne James R.N. 14:03 04/04/16. BP: 113/65. HR: 90. RR: 20. O2 saturation: 96% on room air. Temp: deferred. 12:30 04/04/16. BP: 114/73. HR: 100. RR: 20. O2 saturation: 96% on room air. Temp: 101.1 F. Pain level now: 07/12. 10:52 04/04/16. BP: 122/68. HR: 96. RR: 22. O2 saturation: 98%. Temp: 99.4 F. Pain level now: 07/12. --15:05 Lavonne James R.N. Locked/Released at 04/04/2016 15:05 by Lavonne James R.N.
--- NOTE | 2016-04-04 13:36 | ED ORDER SUMMARY ---
..... Patient: KELIN TORO OrderSheet [facility] VisitID: [id number] [address] [place] [address] 31y, M Registration Date/Time: 04/04/2016 ORDER SHEET Weight: 61.2 kg (stated) Allergies: None GENERAL ORDERS: Rapid Influenza Screen (Nasal Pharyngeal) (swab) Urgent (11:21 04/04/2016 Nichole SKAGGS) (Ack 11:26 LMuller) (12:29 SRoberts R.N.) MEDICATION ORDERS: Tylenol PO 1,000 mg (NOW) (12:53 04/04/2016 Nichole SKAGGS) (Ack 12:54 SRoberts R.N.) (13:10 SRoberts R.N.) - (Tamiflu 75 mg PO x 1) (12:53 04/04/2016 Nichole SKAGGS) (Ack 12:55 SRoberts R.N.) (13:09 SRoberts R.N.) IV FLUIDS: ORDER SHEET NOTES: [Electronically signed by Lavonne James R.N. (15:05 04/04/2016)] [Electronically signed by Danielle Cox MD (16:15 04/10/2016)] [Electronically locked/signed by Lavonne James R.N. (15:05 04/04/2016)]
--- NOTE | 2016-04-04 13:36 | ED ORDER SUMMARY ---
..... Patient: KELIN TORO OrderSheet [facility] VisitID: [id number] [address] [place] [address] 31y, M Registration Date/Time: 04/04/2016 ORDER SHEET Weight: 61.2 kg (stated) Allergies: None GENERAL ORDERS: Rapid Influenza Screen (Nasal Pharyngeal) (swab) Urgent (11:21 04/04/2016 Nichole SKAGGS) (Ack 11:26 LMuller) (12:29 SRoberts R.N.) MEDICATION ORDERS: Tylenol PO 1,000 mg (NOW) (12:53 04/04/2016 Nichole SKAGGS) (Ack 12:54 SRoberts R.N.) (13:10 SRoberts R.N.) - (Tamiflu 75 mg PO x 1) (12:53 04/04/2016 Nichole SKAGGS) (Ack 12:55 SRoberts R.N.) (13:09 SRoberts R.N.) IV FLUIDS: ORDER SHEET NOTES: [Electronically signed by Lavonne James R.N. (15:05 04/04/2016)] [Electronically signed by Danielle Cox MD (16:15 04/10/2016)] [Electronically locked/signed by Lavonne James R.N. (15:05 04/04/2016)]
--- NOTE | 2016-04-04 13:36 | ED CLINICAL REPORT ---
Clinical Report - Physicians/Mid Levels [facility] [address] [place] [address] 04/04/2016 10:09 Patient: KELIN TORO Time Seen: 11:23. Arrived- By private vehicle. Historian- patient. HISTORY OF PRESENT ILLNESS Chief Complaint: COUGH, SORE THROAT, FEVER and "FLU". This started about 3 days ago and is still present. The illness is described as moderate. The patient has had sputum production, a cough, a sore throat, nasal congestion and fever. He has had chills and a nasal discharge. No difficulty breathing, chest discomfort, muscle aches, hoarseness or sinus pressure. No sinus drainage or ear pain. Additional history - The patient has had contact with a sick individual. Similar symptoms previously: None. Recent medical care: Not recently seen/assessed. REVIEW OF SYSTEMS The patient has had a headache and hay fever. No eye discomfort, nausea, diarrhea, abdominal pain or pedal edema. No calf pain, difficulty with urination, skin rash, enlarged lymph nodes or joint pain. All systems otherwise negative, except as recorded above. PAST HISTORY Problems: Dental Abscess. Gastroenteritis. Additional Surgeries: Appendectomy. Tonsillectomy. Medications: [place] Oral (Tablet 5-325 mg) 1 tablet, hs as needed. Pcn 500mg 4 times a day . Allergies: None. SOCIAL HISTORY Smoker- current status unknown. No alcohol use or drug use. ADDITIONAL NOTES The nursing notes have been reviewed. PHYSICAL EXAM Vital Signs: 04/04/2016 10:52 BP: 122/68. HR: 96. RR: 22. O2 saturation: 98%. Temp: 99.4 F. Pain level now: 5/10. Have been reviewed. Appearance: Alert. No acute distress. (Pt appears moderately uncomfortable.). Eyes: Pupils equal, round and reactive to light. Eyes normal inspection. ENT: Nose normal. Neck: Normal inspection. Neck supple. CVS: Normal heart rate and rhythm. Heart sounds normal. Pulses normal. Respiratory: No respiratory distress. Breath sounds normal. Abdomen: Soft and nontender. Back: Normal inspection. Skin: Skin warm and dry. Normal skin color. No rash. Normal skin turgor. Extremities: Extremities exhibit normal ROM. No lower extremity edema. Neuro: Oriented X 3. No motor deficit. No sensory deficit. LABS, X-RAYS, AND EKG Laboratory Tests: Rapid Influenza Screen: (VIJAYA: 04/04/2016 12:25) ( MsgRcvd 04/04/2016 12:44) Final results SPECIMEN DESCRIPTION: SWAB Test Result Flag Units (Reference) RAPID INFLUENZA SCREEN CALLED TO: ALEKSANDRA MERCADO RN -- DATE: 04/04/16 INFLUENZA A: POSITIVE SCREEN FOR INFLUENZA A INFLUENZA B: NEGATIVE SCREEN FOR INFLUENZA B . Pulse Oximetry: 04/04/2016 10:52 O2 saturation: 98%. (FIO2 - room air). Interpretation: normal. PROGRESS AND PROCEDURES Course of Care: Pt was treated with Tylenol for his fever, and with Tamiflu for influenza. Patient counseled in person regarding the patient's stable condition, test results, diagnosis and need for follow-up. Concerns were addressed. Old medical records reviewed. Disposition: Discharged. Condition: stable and improved. CLINICAL IMPRESSION Influenza type A with upper respiratory infection. INSTRUCTIONS Take Tylenol (Acetaminophen) or Motrin (Ibuprofen) for fever. Take according to label instructions. Do not work for three days. Drink plenty of fluids. Warnings: GENERAL WARNINGS: Return or contact your physician immediately if your condition worsens or changes unexpectedly, if not improving as expected, or if other problems arise. Prescription Medications: Tamiflu 75 mg: take 1 capsule orally every 12 hours for 5 days. No refill. Substitution is permissible. Follow-up: Follow up with your doctor as needed. Understanding of the discharge instructions verbalized by patient and family. (Electronically signed by Danielle Cox MD 04/10/2016 16:15)
--- NOTE | 2016-04-10 16:16 | ED MED RECONCILIATION SUMMARY ---
Patient: KELIN TORO Medication Reconciliation Report [facility] VisitID: [id number] [address] [place] [address] 31y, M Registration Date/Time: 04/04/2016 Weight: 61.2 kg Height/Length: 65 in. BMI: 22.5 ALLERGIES: None The patient's Home Medications are listed below: THE FOLLOWING MEDICATIONS NEED TO BE RECONCILED: [place] Oral (5-325 mg) 1 tablet, hs Pcn 500mg 4 times a day The source(s) of the original Home Medication information: patient The following Medications were given to the patient in the Emergency Department: Tamiflu [PO] PO 75 mg, administered: 04/04/2016 1:09:00 PM Tylenol [PO] PO 1000 mg, administered: 04/04/2016 1:10:00 PM The following Medications were prescribed to the patient: Tamiflu 75 mg: take 1 capsule orally every 12 hours for 5 days. No refill. Substitution is permissible. -- Danielle Cox MD
--- NOTE | 2016-04-10 16:16 | ED MAR SUMMARY ---
..... Medication Administration Record [facility] [address] [place] [address] Patient: KELIN TORO Visit ID: [id number] 31y, M Weight: 61.2 kg Height/Length: 65 in BMI: 22.5 ALLERGIES: None Given 13:09 04/04/2016 Lavonne James R.N. Medication Administered: TAMIFLU [PO], Dose: 75 mg PO. Medication Ordered: - (Tamiflu 75 mg PO x 1). Given 13:10 04/04/2016 Lavonne James R.N. Medication Administered: TYLENOL [PO] (ACETAMINOPHEN), Dose: 1000 mg PO. Medication Ordered: Tylenol PO 1,000 mg (NOW).
--- NOTE | 2016-04-10 16:16 | ED MED RECONCILIATION SUMMARY ---
Patient: KELIN TORO Medication Reconciliation Report [facility] VisitID: [id number] [address] [place] [address] 31y, M Registration Date/Time: 04/04/2016 Weight: 61.2 kg Height/Length: 65 in. BMI: 22.5 ALLERGIES: None The patient's Home Medications are listed below: THE FOLLOWING MEDICATIONS NEED TO BE RECONCILED: [place] Oral (5-325 mg) 1 tablet, hs Pcn 500mg 4 times a day The source(s) of the original Home Medication information: patient The following Medications were given to the patient in the Emergency Department: Tamiflu [PO] PO 75 mg, administered: 04/04/2016 1:09:00 PM Tylenol [PO] PO 1000 mg, administered: 04/04/2016 1:10:00 PM The following Medications were prescribed to the patient: Tamiflu 75 mg: take 1 capsule orally every 12 hours for 5 days. No refill. Substitution is permissible. -- Danielle Cox MD
--- NOTE | 2016-04-10 16:16 | ED MAR SUMMARY ---
..... Medication Administration Record [facility] [address] [place] [address] Patient: KELIN TORO Visit ID: [id number] 31y, M Weight: 61.2 kg Height/Length: 65 in BMI: 22.5 ALLERGIES: None Given 13:09 04/04/2016 Lavonne James R.N. Medication Administered: TAMIFLU [PO], Dose: 75 mg PO. Medication Ordered: - (Tamiflu 75 mg PO x 1). Given 13:10 04/04/2016 Lavonne James R.N. Medication Administered: TYLENOL [PO] (ACETAMINOPHEN), Dose: 1000 mg PO. Medication Ordered: Tylenol PO 1,000 mg (NOW).
--- NOTE | 2016-04-10 16:16 | ED DISCHARGE INSTRUCTIONS ---
Patient: KELIN TORO General Instructions [facility] VisitID: [id number] [address] [place] [address] 31y, M Registration Date/Time: 04/04/2016 Influenza type A with upper respiratory infection. INSTRUCTIONS Take Tylenol (Acetaminophen) or Motrin (Ibuprofen) for fever. Take according to label instructions. Do not work for three days. Drink plenty of fluids. Warnings: GENERAL WARNINGS: Return or contact your physician immediately if your condition worsens or changes unexpectedly, if not improving as expected, or if other problems arise. Prescription Medications: Tamiflu 75 mg: take 1 capsule orally every 12 hours for 5 days. No refill. Substitution is permissible. Follow-up: Follow up with your doctor as needed. Understanding of the discharge instructions verbalized by patient and family. ADDITIONAL INFORMATION Influenza (Adult) Influenza, also called the flu, is a viral illness that affects the air passages of the lungs. It differs from the common cold. It is highly contagious. It may be spread through the air by coughing and sneezing or by direct contact (touching the sick person and then touching your own eyes, nose or mouth). Illness starts 1-3 days after exposure and lasts for 1-2 weeks. Antibiotics are usually not needed unless a complication appears (ear or sinus infection or pneumonia). Symptoms may be mild or severe and can include extreme tiredness (wanting to stay in bed all day), chills, fevers, muscle aching, soreness with eye movement, headache, and a dry, hacking cough. Home Care: Avoid exposure to cigarette smoke (yours or others). Tylenol or ibuprofen (Advil) will help fever, muscle aching, and headache. To avoid risk of liver injury, aspirin should not be used in children and teenagers under 18 with this illness. Nausea and loss of appetite are common. A light diet is recommended. Avoid dehydration by drinking 6-8 glasses of fluids per day (water, sport drinks like Gatorade, soft drinks without caffeine, juices, tea, soup, etc.). Extra fluids will also help loosen secretions in the nose and lungs. Sabt-mfz-mzubtsp cold medicines will not shorten the duration of the illness but may be helpful for the following symptoms: cough (Robitussin DM); sore throat (Chloraseptic lozenges or spray); nasal and sinus congestion (Actifed or Sudafed). [NOTE: Do not use decongestants if you have high blood pressure.] Stay home until your fever has been gone for at least 24 hours (without the use of fever-reducing medications such as ibuprofen). Follow Up with your doctor or as directed by our staff if you are not improving over the next week. Note: If you are age 65 or older, or if you have chronic asthma or COPD, we recommend a pneumococcal vaccinationevery five years. All adults shouldreceive a yearly influenza vaccination every . Ask your doctor about this. Get Prompt Medical Attention if any of the following occur: Cough with lots of colored sputum (mucus) or blood in your sputum Chest pain, shortness of breath, wheezing, or difficulty breathing Severe headache, face, neck or ear pain New rash Fever of 100.4F (38C) oral or higher, not better with fever medication Confusion, behavior change or seizure Severe weakness or dizziness Fever Control (Adult) A fever is a natural reaction of the body to an illness. In most cases, the temperature itself is not harmful. It actually helps the body fight infections. A fever does not need to be treated unless you feel very uncomfortable. Home Care If you feel warm, check your temperature. If you feel very uncomfortable and your temperature is at or higher than 100.4F (38C) oral, you may take acetaminophen (Tylenol) every 4 to 6 hours. If you cant take or keep down oral medicine, ask your pharmacist for Tylenol suppositories, which you can get without a prescription. If the fever does not respond to acetaminophen within 1 hour, take ibuprofen (Advil or Motrin). If this works, keep taking the ibuprofen every 6 to 8 hours. Note: If you have chronic liver or kidney disease or ever had a stomach ulcer or GI bleeding, talk with your doctor before using these medications. If either medication alone does not keep the fever down, you may alternate the two medicines every 3 to 4 hours, only if your healthcare provider has instructed you to do so. For example, take Motrin then wait 3 hours, take Tylenol then wait 3 hours, take Motrin, and so on. Follow your healthcare providers instructions exactly. Clothing: Keep clothing light because excess body heat is lost through the skin. The fever will go up if you wear extra layers or wrap in blankets. Fluids: Fever causes the body to lose water through evaporation. Drink plenty of fluids such as water, juice, clear sodas, julio césar jostin, or lemonade. Do not use aspirin in anyone under 18 years of age who is ill with a fever. It can cause severe liver damage. Follow Up with your doctor or as advised by our staff if you do not get better after 48 hours. Get Prompt Medical Attention if any of the following occur: Fever does not get better after taking fever medication Fast or difficult breathing Earache, sinus pain, stiff or painful neck, headache, repeated diarrhea or vomiting You feel unusually irritable, drowsy, or confused A rash appears You feel weak or dizzy, or that you might faint You have been given the following additional information: Influenza (Adult) Fever Control (Adult) Do not work for three days. (Electronically signed by Danielle Cox MD 04/10/2016 16:15)
== END 2016-04-04 14:07 | disposition home or self-care (01) ==
LOC: ED SRH 10:06
DX: J10.1 Influenza due to other identified influenza virus with other respiratory manifestations (principal); Z79.891 Long term (current) use of opiate analgesic; Z79.2 Long term (current) use of antibiotics
CPT/HCPCS: 91400

== ENCOUNTER 2016-07-28 20:22 | Emergency (ER) | payer OTHER ==
--- NOTE | 2016-07-28 21:12 | ED ORDER SUMMARY ---
..... Patient: KELIN TORO OrderSheet [facility] VisitID: [id number] [address] [place] [address] 31y, M Registration Date/Time: 07/28/2016 ORDER SHEET Weight: 61.2 kg (stated) Allergies: No Known Drug Allergy GENERAL ORDERS: GC/Chlamydia, Urine (Urine, Clean Catch) (u) Urgent (20:32 07/28/2016 EKoroleva P.A.-C) (Ack 20:35 CHernandez R.N.) (20:35 CHernandez R.N.) UA-Culture if indicated Urgent (20:32 07/28/2016 EKoroleva P.A.-C) (20:35 CHernandez R.N.) MEDICATION ORDERS: Ciprofloxacin PO 500 mg (NOW) (21:10 07/28/2016 EKoroleva P.A.-C) (Ack 21:32 CHernandez R.N.) (21:47 CHernandez R.N.) Pyridium PO 100 mg (NOW) (21:10 07/28/2016 EKoroleva P.A.-C) (Ack 21:32 CHernandez R.N.) (21:48 CHernandez R.N.) IV FLUIDS: ORDER SHEET NOTES: [Electronically signed by Suri BlackADora-C (21:25 07/28/2016)] [Electronically signed by Jarret Amin R.N. (21:50 07/28/2016)] [Electronically locked/signed by Jarret Amin R.N. (21:50 07/28/2016)]
--- NOTE | 2016-07-28 21:12 | ED NURSING NOTES ---
Clinical Report - Nurses [facility] [place] [address] 07/28/2016 20:23 Patient: KELIN TORO TRIAGE Triage time 20:27. Acuity: LEVEL 4. Chief Complaint: HEMATURIA. --20:33 Jarret Amin R.N. 20:27 07/28/16. BP: 119/76. HR: 100. RR: 16. O2 saturation: 100%. Temp: 98.9 F (oral). --20:33 Jarret Amin R.N. 21:50 07/28/16. Pain level now 0/10. --21:50 Jarret Amin R.N. Weight: 61.2 kg stated. Height/Length: 65 inches Per Patient. BMI: 22.5. --20:35 Jarret Amin R.N. Medications None. --20:29 Jarret Amin R.N. Medication/allergy information source: the patient. --20:33 Jarret Amin R.N. Allergies No Known Drug Allergy. --20:29 Jarret Amin R.N. History Arrived by private vehicle. Historian: patient. Accompanied by family. ( Blood in urine started today, denies abdominal pain and nausea. Some discomfort when stopping in the middle of the void.). This started today. 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 SOCIAL HX: Current every day heavy tobacco smoker (cigarette)- less than 1 pack per day. --20:33 Jarret Amin R.N. Interventions ID band on patient. To room. --20:33 Jarret Amin R.N. PHYSICAL ASSESSMENT Ambulatory to room. GENERAL / NEURO / PSYCH: Alert. Oriented X 4. Appears in no acute distress. Appears in distress. He appears anxious and agitated. HEENT: Mucous membranes are pink. RESPIRATORY: Respirations not labored. Breath sounds within normal limits. CVS: Normal heart rate and rhythm. Capillary refill less than 2 seconds. GI / : Abdomen soft and nontender. Bowel sounds within normal limits. Urethral discharge (blood). SKIN: Skin is warm and dry. --20:34 Jarret Amin R.N. NURSING PROGRESS NOTES Head of bed elevated. Reassurance given. Patient identifiers checked. Side rails up x 1. Bed placed in lowest position. Brakes of bed on. Patient ready for evaluation- chart flagged. --20:34 Jarret Amin R.N. Patient ID band checked for patient name and birthdate: patient confirmed. Instructions provided to collect clean catch urine and patient verbalized understanding. Clean catch urine collected with return of orange-colored red-colored urine, blood clots noted; sample sent to lab for urinalysis. Specimen labeled in the presence of the patient. --20:36 Jarret Amin R.N. 21:42 07/28/2016 Ciprofloxacin (Ciprofloxacin) PO Capsules 500 mg given. Allergies verified and confirmed 5 rights. --21:47 Jarret Amin R.N. 21:43 07/28/2016 Pyridium (Phenazopyridine HCl) PO 100 mg given. Allergies verified and confirmed 5 rights. --21:48 Jarret Amin R.N. DISPOSITION / DISCHARGE No learning barriers present. Discharge instructions provided and reviewed with the patient (girlfriend). Reviewed medication(s) side effects, precautions, dosing and course information. Prescription(s) given to the patient. Patient verbalized understanding. Written instructions provided in Sudanese. The patient was discharged home and accompanied by newspaper clipper. He left the Emergency Department ambulatory and via private vehicle. Commercial Construction Estimator driving (girlfriend). --21:49 Jarret Amin R.N. 21:48 07/28/16. BP: 120/75. HR: 72. RR: 14. O2 saturation: 100%. Temp: 98 F. Pain level now: 0/10. --21:49 Jarret Amin R.N. Departure time: 21:49. --21:50 Jarret Amin R.N. Locked/Released at 07/28/2016 21:50 by Jarret Amin R.N.
--- NOTE | 2016-07-28 21:12 | ED NURSING NOTES ---
Clinical Report - Nurses Located Within [facility] [place] [address] 07/28/2016 20:23 Patient: KELIN TORO TRIAGE Triage time 20:27. Acuity: LEVEL 4. Chief Complaint: HEMATURIA. --20:33 Jarret Amin R.N. 20:27 07/28/16. BP: 119/76. HR: 100. RR: 16. O2 saturation: 100%. Temp: 98.9 F (oral). --20:33 Jarret Amin R.N. 21:50 07/28/16. Pain level now 0/10. --21:50 Jarret Amin R.N. Weight: 61.2 kg stated. Height/Length: 65 inches Per Patient. BMI: 22.5. --20:35 Jarret Amin R.N. Medications None. --20:29 Jarret Amin R.N. Medication/allergy information source: the patient. --20:33 Jarret Amin R.N. Allergies No Known Drug Allergy. --20:29 Jarret Amin R.N. History Arrived by private vehicle. Historian: patient. Accompanied by family. ( Blood in urine started today, denies abdominal pain and nausea. Some discomfort when stopping in the middle of the void.). This started today. 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 SOCIAL HX: Current every day heavy tobacco smoker (cigarette)- less than 1 pack per day. --20:33 Jarrte Amin R.N. Interventions ID band on patient. To room. --20:33 Jarret Amin R.N. PHYSICAL ASSESSMENT Ambulatory to room. GENERAL / NEURO / PSYCH: Alert. Oriented X 4. Appears in no acute distress. Appears in distress. He appears anxious and agitated. HEENT: Mucous membranes are pink. RESPIRATORY: Respirations not labored. Breath sounds within normal limits. CVS: Normal heart rate and rhythm. Capillary refill less than 2 seconds. GI / : Abdomen soft and nontender. Bowel sounds within normal limits. Urethral discharge (blood). SKIN: Skin is warm and dry. --20:34 Jarret Amin R.N. NURSING PROGRESS NOTES Head of bed elevated. Reassurance given. Patient identifiers checked. Side rails up x 1. Bed placed in lowest position. Brakes of bed on. Patient ready for evaluation- chart flagged. --20:34 Jarret Amin R.N. Patient ID band checked for patient name and birthdate: patient confirmed. Instructions provided to collect clean catch urine and patient verbalized understanding. Clean catch urine collected with return of orange-colored red-colored urine, blood clots noted; sample sent to lab for urinalysis. Specimen labeled in the presence of the patient. --20:36 Jarret Amin R.N. 21:42 07/28/2016 Ciprofloxacin (Ciprofloxacin) PO Capsules 500 mg given. Allergies verified and confirmed 5 rights. --21:47 Jarret Amin R.N. 21:43 07/28/2016 Pyridium (Phenazopyridine HCl) PO 100 mg given. Allergies verified and confirmed 5 rights. --21:48 Jarret Amin R.N. DISPOSITION / DISCHARGE No learning barriers present. Discharge instructions provided and reviewed with the patient (girlfriend). Reviewed medication(s) side effects, precautions, dosing and course information. Prescription(s) given to the patient. Patient verbalized understanding. Written instructions provided in Trinidadian. The patient was discharged home and accompanied by energy analyst. He left the Emergency Department ambulatory and via private vehicle. Tanning Solution Maker driving (girlfriend). --21:49 Jarret Amin R.N. 21:48 07/28/16. BP: 120/75. HR: 72. RR: 14. O2 saturation: 100%. Temp: 98 F. Pain level now: 0/10. --21:49 Jarret Amin R.N. Departure time: 21:49. --21:50 Jarret Amin R.N. Locked/Released at 07/28/2016 21:50 by Jarret Amin R.N.
--- NOTE | 2016-07-28 21:12 | ED CLINICAL REPORT ---
Clinical Report - Physicians/Mid Levels [facility] [address] [place] [address] 07/28/2016 20:23 Patient: KELIN TORO Time Seen: 20:36 Jul 28 2016. Arrived- By private vehicle. Historian- patient and significant other. HISTORY OF PRESENT ILLNESS Chief Complaint: HEMATURIA. This started today and is still present. The problem is described as mild. No penile discharge. He has had discomfort with urination. (Patient reports hematuria since today, reports this is painless in nature. Denies any fevers or chills. Denies any flank pain. Denies any trauma. Patient denies being sexually active. Patient denies discharge. Patient denies any pain. Patient denies any history of similar. He denies abdominal pain. He denies any trauma. Denies any testicular pain. Denies or penile discharge.). REVIEW OF SYSTEMS No fever, flank pain, abdominal pain, vomiting or diarrhea. No black stools or joint pain. The patient has had hematuria. All systems otherwise negative, except as recorded above. PAST HISTORY No history of urinary retention. Does not have Mccarty catheter. Problems: Influenza. Tooth broken . Dental Abscess. Gastroenteritis. Additional Surgeries: Appendectomy. Tonsillectomy. Medications: None. Allergies: No Known Drug Allergy. SOCIAL HISTORY Current every day smoker. No alcohol use or drug use. ADDITIONAL NOTES The nursing notes have been reviewed. PHYSICAL EXAM Vital Signs: 07/28/2016 20:27 BP: 119/76. HR: 100. RR: 16. O2 saturation: 100%. Temp: 98.9 F. Appearance: No acute distress. ENT: Normal external inspection. Pharynx normal. No hearing deficit. Neck: Neck supple. CVS: Heart sounds normal. Respiratory: No respiratory distress. Breath sounds normal. No rales or wheezes. Abdomen: Soft. No mass. No abdominal tenderness. The bowel sounds are not abnormal. : Normal genitalia. Testes descended. No urethral discharge or genital lesion. Skin: Skin warm. Normal skin color. Neuro: Oriented X 3. LABS, X-RAYS, AND EKG Laboratory Tests: UA-Culture if indicated: (VIJAYA: 07/28/2016 20:25) ( MsgRcvd 07/28/2016 21:09) Final results Test Result Flag Units (Reference) URINE COLOR YELLOW URINE APPEARANCE SL CLOUDY URINE GLUCOSE TRACE (NEGATIVE) URINE BILIRUBIN NEGATIVE (NEGATIVE) URINE KETONE NEGATIVE (NEGATIVE) URINE SPECIFIC GRAVITY >= 1.030 (1.010-1.030) URINE PH 6.0 (5.0-8.0) URINE PROTEIN 2+ (NEGATIVE) URINE UROBILINOGEN 0.2 EU/dL (0.2-1.0) URINE NITRITE POSITIVE (NEGATIVE) URINE BLOOD 3+ (NEGATIVE) URINE LEUK ESTERASE NEGATIVE (NEGATIVE) URINE RBC 10-25 rbc/hpf (0-1) URINE WBC 10-15 wbc/hpf (0-1) URINE EPITHELIAL CELLS RARE EPI/hpf (0-5) URINE BACTERIA FEW (1+) (NONE SEEN) URINE COMMENT CULTURE INDICATED URINE CULTURES ARE SET-UP BASED ON THE FOLLOWING CRITERIA:POSITIVE NITRITEPOSITIVE LEUKOCYTE ESTERASEGREATER THAN 10 WHITE BLOOD CELLSMODERATE (2+) OR GREATER BACTERIA . PROGRESS AND PROCEDURES Course of Care: Patient denies any recent STD exposures. He has no flank pain. He has no pain. Afebrile. Positive nitrate, with WBC. Patient will be treated for cystitis. No history of similar. No signs of sepsis. No SIRS criteria. Patient is stable. The patient's symptoms are unchanged. Disposition: Discharged. CLINICAL IMPRESSION Acute cystitis. INSTRUCTIONS ([facility]: Address: [facility] [place] [address] ). Warnings: Further evaluation is necessary. Prescription Medications: Hydrocodone/APAP 5mg / 325mg: take 1 orally every 6 hours as needed for pain. Dispense ten (10). No refill. Cipro 500 mg: take 1 tab orally every 12 hours for 7 days. Dispense fourteen (14). No refills. Substitution is permissible. Follow-up: Follow up with your doctor Sunday. (Electronically signed by Suri Black P.A.-C 07/28/2016 21:25)
--- NOTE | 2016-07-28 21:12 | ED ORDER SUMMARY ---
..... Patient: KELIN TORO OrderSheet [facility] VisitID: [id number] [address] [place] [address] 31y, M Registration Date/Time: 07/28/2016 ORDER SHEET Weight: 61.2 kg (stated) Allergies: No Known Drug Allergy GENERAL ORDERS: GC/Chlamydia, Urine (Urine, Clean Catch) (u) Urgent (20:32 07/28/2016 EKoroleva P.A.-C) (Ack 20:35 CHernandez R.N.) (20:35 CHernandez R.N.) UA-Culture if indicated Urgent (20:32 07/28/2016 EKoroleva P.A.-C) (20:35 CHernandez R.N.) MEDICATION ORDERS: Ciprofloxacin PO 500 mg (NOW) (21:10 07/28/2016 EKoroleva P.A.-C) (Ack 21:32 CHernandez R.N.) (21:47 CHernandez R.N.) Pyridium PO 100 mg (NOW) (21:10 07/28/2016 EKoroleva P.A.-C) (Ack 21:32 CHernandez R.N.) (21:48 CHernandez R.N.) IV FLUIDS: ORDER SHEET NOTES: [Electronically signed by Suri BlackADora-C (21:25 07/28/2016)] [Electronically signed by Jarret Amin R.N. (21:50 07/28/2016)] [Electronically locked/signed by Jarret Amin R.N. (21:50 07/28/2016)]
--- NOTE | 2016-07-28 21:12 | ED CLINICAL REPORT ---
Clinical Report - Physicians/Mid Levels [facility] [address] [place] [address] 07/28/2016 20:23 Patient: KELIN TORO Time Seen: 20:36 Jul 28 2016. Arrived- By private vehicle. Historian- patient and significant other. HISTORY OF PRESENT ILLNESS Chief Complaint: HEMATURIA. This started today and is still present. The problem is described as mild. No penile discharge. He has had discomfort with urination. (Patient reports hematuria since today, reports this is painless in nature. Denies any fevers or chills. Denies any flank pain. Denies any trauma. Patient denies being sexually active. Patient denies discharge. Patient denies any pain. Patient denies any history of similar. He denies abdominal pain. He denies any trauma. Denies any testicular pain. Denies or penile discharge.). REVIEW OF SYSTEMS No fever, flank pain, abdominal pain, vomiting or diarrhea. No black stools or joint pain. The patient has had hematuria. All systems otherwise negative, except as recorded above. PAST HISTORY No history of urinary retention. Does not have Mccarty catheter. Problems: Influenza. Tooth broken . Dental Abscess. Gastroenteritis. Additional Surgeries: Appendectomy. Tonsillectomy. Medications: None. Allergies: No Known Drug Allergy. SOCIAL HISTORY Current every day smoker. No alcohol use or drug use. ADDITIONAL NOTES The nursing notes have been reviewed. PHYSICAL EXAM Vital Signs: 07/28/2016 20:27 BP: 119/76. HR: 100. RR: 16. O2 saturation: 100%. Temp: 98.9 F. Appearance: No acute distress. ENT: Normal external inspection. Pharynx normal. No hearing deficit. Neck: Neck supple. CVS: Heart sounds normal. Respiratory: No respiratory distress. Breath sounds normal. No rales or wheezes. Abdomen: Soft. No mass. No abdominal tenderness. The bowel sounds are not abnormal. : Normal genitalia. Testes descended. No urethral discharge or genital lesion. Skin: Skin warm. Normal skin color. Neuro: Oriented X 3. LABS, X-RAYS, AND EKG Laboratory Tests: UA-Culture if indicated: (VJIAYA: 07/28/2016 20:25) ( MsgRcvd 07/28/2016 21:09) Final results Test Result Flag Units (Reference) URINE COLOR YELLOW URINE APPEARANCE SL CLOUDY URINE GLUCOSE TRACE (NEGATIVE) URINE BILIRUBIN NEGATIVE (NEGATIVE) URINE KETONE NEGATIVE (NEGATIVE) URINE SPECIFIC GRAVITY >= 1.030 (1.010-1.030) URINE PH 6.0 (5.0-8.0) URINE PROTEIN 2+ (NEGATIVE) URINE UROBILINOGEN 0.2 EU/dL (0.2-1.0) URINE NITRITE POSITIVE (NEGATIVE) URINE BLOOD 3+ (NEGATIVE) URINE LEUK ESTERASE NEGATIVE (NEGATIVE) URINE RBC 10-25 rbc/hpf (0-1) URINE WBC 10-15 wbc/hpf (0-1) URINE EPITHELIAL CELLS RARE EPI/hpf (0-5) URINE BACTERIA FEW (1+) (NONE SEEN) URINE COMMENT CULTURE INDICATED URINE CULTURES ARE SET-UP BASED ON THE FOLLOWING CRITERIA:POSITIVE NITRITEPOSITIVE LEUKOCYTE ESTERASEGREATER THAN 10 WHITE BLOOD CELLSMODERATE (2+) OR GREATER BACTERIA . PROGRESS AND PROCEDURES Course of Care: Patient denies any recent STD exposures. He has no flank pain. He has no pain. Afebrile. Positive nitrate, with WBC. Patient will be treated for cystitis. No history of similar. No signs of sepsis. No SIRS criteria. Patient is stable. The patient's symptoms are unchanged. Disposition: Discharged. CLINICAL IMPRESSION Acute cystitis. INSTRUCTIONS ([facility]: Address: [facility] [place] [address] ). Warnings: Further evaluation is necessary. Prescription Medications: Hydrocodone/APAP 5mg / 325mg: take 1 orally every 6 hours as needed for pain. Dispense ten (10). No refill. Cipro 500 mg: take 1 tab orally every 12 hours for 7 days. Dispense fourteen (14). No refills. Substitution is permissible. Follow-up: Follow up with your doctor Sunday. (Electronically signed by Suri Black P.A.-C 07/28/2016 21:25)
--- NOTE | 2016-07-28 21:51 | ED MAR SUMMARY ---
..... Medication Administration Record [facility] [address] [place] [address] Patient: KELIN TORO Visit ID: [id number] 31y, M Weight: 61.2 kg Height/Length: 65 in BMI: 22.5 ALLERGIES: No Known Drug Allergy Given 21:42 07/28/2016 Jarret Amin R.N. Medication Administered: CIPROFLOXACIN [PO] (CIPROFLOXACIN), Dose: 500 mg Capsules PO. Medication Ordered: Ciprofloxacin PO 500 mg (NOW). Given 21:43 07/28/2016 Jarret Amin R.N. Medication Administered: PYRIDIUM [PO] (PHENAZOPYRIDINE HCL), Dose: 100 mg PO. Medication Ordered: Pyridium PO 100 mg (NOW).
--- NOTE | 2016-07-28 21:51 | ED DISCHARGE INSTRUCTIONS ---
Patient: KELIN TORO General Instructions [facility] VisitID: [id number] [address] [place] [address] 31y, M Registration Date/Time: 07/28/2016 Acute cystitis. INSTRUCTIONS ([facility]: Address: [address] [place] [address] ). Warnings: Further evaluation is necessary. Prescription Medications: Hydrocodone/APAP 5mg / 325mg: take 1 orally every 6 hours as needed for pain. Dispense ten (10). No refill. Cipro 500 mg: take 1 tab orally every 12 hours for 7 days. Dispense fourteen (14). No refills. Substitution is permissible. Follow-up: Follow up with your doctor Sunday. ADDITIONAL INFORMATION Bladder Infection,Female (Adult) A bladder infection ("cystitis" or "UTI") usually causes a constant urge to urinate and a burning when passing urine. Urine may be cloudy, smelly or dark. There may be pain in the lower abdomen. A bladder infection occurs when bacteria from the vaginal area enter the bladder opening (urethra). This can occur from sexual intercourse, wearing tight clothing, dehydration and other factors. Home Care: Drink lots of fluids (at least 6-8 glasses a day, unless you must restrict fluids for other medical reasons). This will force the medicine into your urinary system and flush the bacteria out of your body. Avoid sexual intercourse until your symptoms are gone. Avoid caffeine, alcohol and spicy foods. These can irritate the bladder. A bladder infection is treated with antibiotics. You may also be given Pyridium (generic = phenazopyridine) to reduce the burning sensation. This medicine will cause your urine to become a bright orange color. The orange urine may stain clothing. You may wear a pad or panty-liner to protect clothing. Preventing Future Infections: Always wipe from front to back after a bowel movement. Keep the genital area clean and dry. Drink plenty of fluids each day to avoid dehydration. Both sexual partners should wash before intercourse. Urinate right after intercourse to flush out the bladder. Wear cotton underwear and cotton-lined panty hose; avoid tight-fitting pants. If you are on control pills and are having frequent bladder infections, discuss with your doctor. Follow Up: Return to this facility or see your doctor if ALL symptoms are not gone after three days of treatment. Get Prompt Medical Attention if any of the following occur: Fever of 100.4F (38C) or higher, or as directed by your healthcare provider No improvement by the third day of treatment Increasing back or abdominal pain Repeated vomiting; unable to keep medicine down Weakness, dizziness or fainting Vaginal discharge Pain, redness or swelling in the labia (outer vaginal area) Hydrocodone Bitartrate, Acetaminophen Oral tablet What is this medicine? ACETAMINOPHEN; HYDROCODONE (a set a JONG duc fen; dameon droe KOE done) is a pain reliever. It is used to treat mild to moderate pain. How should I use this medicine? Take this medicine by mouth. Swallow it with a full glass of water. Follow the directions on the prescription label. If the medicine upsets your stomach, take the medicine with food or milk. Do not take more than you are told to take. Talk to your docking saw operator regarding the use of this medicine in children. This medicine is not approved for use in children. What side effects may I notice from receiving this medicine? Side effects that you should report to your doctor or health assistant child care teacher as soon as possible: allergic reactions like skin rash, itching or hives, swelling of the face, lips, or tongue breathing problems confusion feeling faint or lightheaded, falls stomach pain yellowing of the eyes or skin Side effects that usually do not require medical attention (report to your doctor or health assistant child care teacher if they continue or are bothersome): nausea, vomiting stomach upset What may interact with this medicine? alcohol antihistamines isoniazid medicines for depression, anxiety, or psychotic disturbances medicines for sleep muscle relaxants naltrexone narcotic medicines (opiates) for pain phenobarbital ritonavir tramadol What if I miss a dose? If you miss a dose, take it as soon as you can. If it is almost time for your next dose, take only that dose. Do not take double or extra doses. Where should I keep my medicine? Keep out of the reach of children. This medicine can be abused. Keep your medicine in a safe place to protect it from theft. Do not share this medicine with anyone. Selling or giving away this medicine is dangerous and against the law. Store at room temperature between 15 and 30 degrees C (59 and 86 degrees F). Protect from light. Keep container tightly closed. Throw away any unused medicine after the expiration date. Discard unused medicine and used packaging carefully. Pets and children can be harmed if they find used or lost packages. What should I tell my health care provider before I take this medicine? They need to know if you have any of these conditions: brain tumor Crohn's disease, inflammatory bowel disease, or ulcerative colitis drink more than 3 alcohol-containing drinks per day drug abuse or addiction head injury heart or circulation problems kidney disease or problems going to the bathroom liver disease lung disease, asthma, or breathing problems an unusual or allergic reaction to acetaminophen, hydrocodone, other opioid analgesics, other medicines, foods, dyes, or preservatives or trying to get breast-feeding What should I watch for while using this medicine? Tell your doctor or health assistant child care teacher if your pain does not go away, if it gets worse, or if you have new or a different type of pain. You may develop tolerance to the medicine. Tolerance means that you will need a higher dose of the medicine for pain relief. Tolerance is normal and is expected if you take the medicine for a long time. Do not suddenly stop taking your medicine because you may develop a severe reaction. Your body becomes used to the medicine. This does NOT mean you are addicted. Addiction is a behavior related to getting and using a drug for a non-medical reason. If you have pain, you have a medical reason to take pain medicine. Your doctor will tell you how much medicine to take. If your doctor wants you to stop the medicine, the dose will be slowly lowered over time to avoid any side effects. You may get drowsy or dizzy when you first start taking the medicine or change doses. Do not drive, use machinery, or do anything that may be dangerous until you know how the medicine affects you. Stand or sit up slowly. There are different types of narcotic medicines (opiates) for pain. If you take more than one type at the same time, you may have more side effects. Give your health care provider a list of all medicines you use. Your doctor will tell you how much medicine to take. Do not take more medicine than directed. Call emergency for help if you have problems breathing. The medicine will cause constipation. Try to have a bowel movement at least every 2 to 3 days. If you do not have a bowel movement for 3 days, call your doctor or health assistant child care teacher. Too much acetaminophen can be very dangerous. Do not take Tylenol (acetaminophen) or medicines that contain acetaminophen with this medicine. Many non-prescription medicines contain acetaminophen. Always read the labels carefully. You have been given the following additional information: Bladder Infection, Female (Adult) Hydrocodone Bitartrate, Acetaminophen Oral tablet (Electronically signed by Suri Black P.A.-C 07/28/2016 21:25)
--- NOTE | 2016-07-28 21:51 | ED MAR SUMMARY ---
..... Medication Administration Record [facility] [address] [place] [address] Patient: KELIN TORO Visit ID: [id number] 31y, M Weight: 61.2 kg Height/Length: 65 in BMI: 22.5 ALLERGIES: No Known Drug Allergy Given 21:42 07/28/2016 Jarret Amin R.N. Medication Administered: CIPROFLOXACIN [PO] (CIPROFLOXACIN), Dose: 500 mg Capsules PO. Medication Ordered: Ciprofloxacin PO 500 mg (NOW). Given 21:43 07/28/2016 Jarret Amin R.N. Medication Administered: PYRIDIUM [PO] (PHENAZOPYRIDINE HCL), Dose: 100 mg PO. Medication Ordered: Pyridium PO 100 mg (NOW).
--- NOTE | 2016-07-28 21:51 | ED DISCHARGE INSTRUCTIONS ---
Patient: KELIN TORO General Instructions [facility] VisitID: [id number] [address] [place] [address] 31y, M Registration Date/Time: 07/28/2016 Acute cystitis. INSTRUCTIONS ([facility] Jourdan: Address: [address] [place] [address] ). Warnings: Further evaluation is necessary. Prescription Medications: Hydrocodone/APAP 5mg / 325mg: take 1 orally every 6 hours as needed for pain. Dispense ten (10). No refill. Cipro 500 mg: take 1 tab orally every 12 hours for 7 days. Dispense fourteen (14). No refills. Substitution is permissible. Follow-up: Follow up with your doctor Sunday. ADDITIONAL INFORMATION Bladder Infection,Female (Adult) A bladder infection ("cystitis" or "UTI") usually causes a constant urge to urinate and a burning when passing urine. Urine may be cloudy, smelly or dark. There may be pain in the lower abdomen. A bladder infection occurs when bacteria from the vaginal area enter the bladder opening (urethra). This can occur from sexual intercourse, wearing tight clothing, dehydration and other factors. Home Care: Drink lots of fluids (at least 6-8 glasses a day, unless you must restrict fluids for other medical reasons). This will force the medicine into your urinary system and flush the bacteria out of your body. Avoid sexual intercourse until your symptoms are gone. Avoid caffeine, alcohol and spicy foods. These can irritate the bladder. A bladder infection is treated with antibiotics. You may also be given Pyridium (generic = phenazopyridine) to reduce the burning sensation. This medicine will cause your urine to become a bright orange color. The orange urine may stain clothing. You may wear a pad or panty-liner to protect clothing. Preventing Future Infections: Always wipe from front to back after a bowel movement. Keep the genital area clean and dry. Drink plenty of fluids each day to avoid dehydration. Both sexual partners should wash before intercourse. Urinate right after intercourse to flush out the bladder. Wear cotton underwear and cotton-lined panty hose; avoid tight-fitting pants. If you are on control pills and are having frequent bladder infections, discuss with your doctor. Follow Up: Return to this facility or see your doctor if ALL symptoms are not gone after three days of treatment. Get Prompt Medical Attention if any of the following occur: Fever of 100.4F (38C) or higher, or as directed by your healthcare provider No improvement by the third day of treatment Increasing back or abdominal pain Repeated vomiting; unable to keep medicine down Weakness, dizziness or fainting Vaginal discharge Pain, redness or swelling in the labia (outer vaginal area) Hydrocodone Bitartrate, Acetaminophen Oral tablet What is this medicine? ACETAMINOPHEN; HYDROCODONE (a set a JONG duc fen; dameon droe KOE done) is a pain reliever. It is used to treat mild to moderate pain. How should I use this medicine? Take this medicine by mouth. Swallow it with a full glass of water. Follow the directions on the prescription label. If the medicine upsets your stomach, take the medicine with food or milk. Do not take more than you are told to take. Talk to your bender machine operator regarding the use of this medicine in children. This medicine is not approved for use in children. What side effects may I notice from receiving this medicine? Side effects that you should report to your doctor or health day care home provider as soon as possible: allergic reactions like skin rash, itching or hives, swelling of the face, lips, or tongue breathing problems confusion feeling faint or lightheaded, falls stomach pain yellowing of the eyes or skin Side effects that usually do not require medical attention (report to your doctor or health day care home provider if they continue or are bothersome): nausea, vomiting stomach upset What may interact with this medicine? alcohol antihistamines isoniazid medicines for depression, anxiety, or psychotic disturbances medicines for sleep muscle relaxants naltrexone narcotic medicines (opiates) for pain phenobarbital ritonavir tramadol What if I miss a dose? If you miss a dose, take it as soon as you can. If it is almost time for your next dose, take only that dose. Do not take double or extra doses. Where should I keep my medicine? Keep out of the reach of children. This medicine can be abused. Keep your medicine in a safe place to protect it from theft. Do not share this medicine with anyone. Selling or giving away this medicine is dangerous and against the law. Store at room temperature between 15 and 30 degrees C (59 and 86 degrees F). Protect from light. Keep container tightly closed. Throw away any unused medicine after the expiration date. Discard unused medicine and used packaging carefully. Pets and children can be harmed if they find used or lost packages. What should I tell my health care provider before I take this medicine? They need to know if you have any of these conditions: brain tumor Crohn's disease, inflammatory bowel disease, or ulcerative colitis drink more than 3 alcohol-containing drinks per day drug abuse or addiction head injury heart or circulation problems kidney disease or problems going to the bathroom liver disease lung disease, asthma, or breathing problems an unusual or allergic reaction to acetaminophen, hydrocodone, other opioid analgesics, other medicines, foods, dyes, or preservatives or trying to get breast-feeding What should I watch for while using this medicine? Tell your doctor or health day care home provider if your pain does not go away, if it gets worse, or if you have new or a different type of pain. You may develop tolerance to the medicine. Tolerance means that you will need a higher dose of the medicine for pain relief. Tolerance is normal and is expected if you take the medicine for a long time. Do not suddenly stop taking your medicine because you may develop a severe reaction. Your body becomes used to the medicine. This does NOT mean you are addicted. Addiction is a behavior related to getting and using a drug for a non-medical reason. If you have pain, you have a medical reason to take pain medicine. Your doctor will tell you how much medicine to take. If your doctor wants you to stop the medicine, the dose will be slowly lowered over time to avoid any side effects. You may get drowsy or dizzy when you first start taking the medicine or change doses. Do not drive, use machinery, or do anything that may be dangerous until you know how the medicine affects you. Stand or sit up slowly. There are different types of narcotic medicines (opiates) for pain. If you take more than one type at the same time, you may have more side effects. Give your health care provider a list of all medicines you use. Your doctor will tell you how much medicine to take. Do not take more medicine than directed. Call emergency for help if you have problems breathing. The medicine will cause constipation. Try to have a bowel movement at least every 2 to 3 days. If you do not have a bowel movement for 3 days, call your doctor or health day care home provider. Too much acetaminophen can be very dangerous. Do not take Tylenol (acetaminophen) or medicines that contain acetaminophen with this medicine. Many non-prescription medicines contain acetaminophen. Always read the labels carefully. You have been given the following additional information: Bladder Infection, Female (Adult) Hydrocodone Bitartrate, Acetaminophen Oral tablet (Electronically signed by Suri Black P.A.-C 07/28/2016 21:25)
--- NOTE | 2016-07-28 21:51 | ED MED RECONCILIATION SUMMARY ---
Patient: KELIN TORO Medication Reconciliation Report [facility] VisitID: [id number] [address] [place] [address] 31y, M Registration Date/Time: 07/28/2016 Weight: 61.2 kg Height/Length: 65 in. BMI: 22.5 ALLERGIES: No Known Drug Allergy The patient's Home Medications are listed below: NONE. The source(s) of the original Home Medication information: patient The following Medications were given to the patient in the Emergency Department: Ciprofloxacin [PO] PO 500 mg, administered: 07/28/2016 9:42:00 PM Pyridium [PO] PO 100 mg, administered: 07/28/2016 9:43:00 PM The following Medications were prescribed to the patient: Hydrocodone/APAP 5mg / 325mg: take 1 orally every 6 hours as needed for pain. Dispense ten (10). No refill. -- Suri Black, P.ADora-Kira Cipro 500 mg: take 1 tab orally every 12 hours for 7 days. Dispense fourteen (14). No refills. Substitution is permissible. -- Suri Black, P.A.-C
--- NOTE | 2016-07-28 21:51 | ED MED RECONCILIATION SUMMARY ---
Patient: KELIN TORO Medication Reconciliation Report [facility] VisitID: [id number] [address] [place] [address] 31y, M Registration Date/Time: 07/28/2016 Weight: 61.2 kg Height/Length: 65 in. BMI: 22.5 ALLERGIES: No Known Drug Allergy The patient's Home Medications are listed below: NONE. The source(s) of the original Home Medication information: patient The following Medications were given to the patient in the Emergency Department: Ciprofloxacin [PO] PO 500 mg, administered: 07/28/2016 9:42:00 PM Pyridium [PO] PO 100 mg, administered: 07/28/2016 9:43:00 PM The following Medications were prescribed to the patient: Hydrocodone/APAP 5mg / 325mg: take 1 orally every 6 hours as needed for pain. Dispense ten (10). No refill. -- Suri Black, P.ADora-Kira Cipro 500 mg: take 1 tab orally every 12 hours for 7 days. Dispense fourteen (14). No refills. Substitution is permissible. -- Suri Black, P.A.-C
== END 2016-07-28 21:49 | disposition home or self-care (01) ==
LOC: ED SRH 20:22
DX: N30.00 Acute cystitis without hematuria (principal); F17.210 Nicotine dependence, cigarettes, uncomplicated
CPT/HCPCS: 90004; 90148; 90469; 91227; 91228